=== PATIENT | female | born 1975 | race Hispanic/Latino ===

== ENCOUNTER 2016-12-27 07:11 | Inpatient (IN) | payer MEDICAID ==
[~2016-12-27] VITALS: Ht 142.2 cm; Wt 67.1 kg
[2016-12-27] MEDS ORDERED: Lactated Ringer's 1,000 ML IV PRN (07:48)
[2016-12-27] MEDS ORDERED: Carboprost 250 mCg/mL Inj IM PRN ×2 (07:50→12:15)
[2016-12-27] MEDS ORDERED: Oxytocin 10 Unit/mL Inj IM PRN ×2 (07:50→12:15)
[2016-12-27] MEDS ORDERED: Hemorrhage Kit, Post Partum XX ONE ×2 (07:50→12:15)
[2016-12-27] MEDS ORDERED: Methylergonovine 0.2 mg/mL Inj IM PRN ×2 (07:50→12:15)
[2016-12-27] MEDS ORDERED: Oxytocin 30 Units/500 mL LR 30 UNITS in IV Premix 1 EACH IV PRN ×2 (07:50→12:15)
[2016-12-27] MEDS ORDERED: Sodium Chloride LOK Flush 10 mL Syringe IVFLUSH PRN (07:50)
[2016-12-27 08:49] LABS: Mean Corpuscular Hemoglobin 26.2 pg (27.0-35.0); Mean Corpuscular Volume 81.9 fL (81-100)
[2016-12-27] MEDS ORDERED: Lactated Ringer's 1,000 ML IV SCH (12:14)
[2016-12-27] MEDS ORDERED: Witch Hazel-Glycerin Pads TOPICAL PRN (12:15)
[2016-12-27] MEDS ORDERED: Benzocaine (Dermoplast) 20% 60 Gm Spray TOPICAL PRN (12:15)
[2016-12-27] MEDS ORDERED: LANOlin HPA 7 Gm Ointment TOPICAL PRN (12:15)
--- NOTE | 2016-12-27 16:30 | HP ---
[address] [address] HISTORY AND PHYSICAL PATIENT: CHAYITO ROSE : 1975 MR#: [id number] ADMIT: 12/27/2016 JOB ID: [id number] ADMISSION DIAGNOSIS: Active labor at term. HISTORY OF PRESENT ILLNESS: The patient is a 41-year-old, 2, para 1-0-0-1, at 38 weeks and 3 days gestational age by eight week ultrasound. Had her complicated with the following. 1. Advanced maternal age and normal quad screen and normal anatomy scan. 2. Nausea and vomiting of resolved by the 2nd trimester. 3. History of Chlamydia on November 2015. Chlamydia cultures were negative in July 2016 and the repeat culture on 3rd trimester negative as well on December 10, 2016. The patient denied any leakage of fluid, bleeding. Reports movements. Reports regular contractions. PAST OBSTETRIC HISTORY: 2007, had a 40-week ending with spontaneous vaginal delivery. Baby was 7 pounds 7 ounces male , no complications in the current . PAST MEDICAL HISTORY: Nausea and vomiting of . Resolved. PAST SURGICAL HISTORY: None. ASSEMBLY ADJUSTER HISTORY: History of Chlamydia on November 2015. Followup cultures were negative as mentioned above. No prior history of abnormal Pap smears. MEDICATIONS: vitamins and promethazine stopped by 2nd trimester. ALLERGIES: No known drug allergies. SOCIAL HISTORY: Denied any alcohol consumption. Denied any drugs of abuse. Denied any cigarette smoking. FAMILY HISTORY: Insignificant for congenital anomalies or twinning. LABORATORIES: O-positive, antibody negative, rubella immune, serology nonreactive, hepatitis B surface antigen negative. HIV nonreactive. Gonorrhea/chlamydia cultures negative in July 2016 and again on December 10, 2016. Repeat HIV was negative on December 10, 2016, and repeat RPR was negative on December 10, 2016. One-hour GCT was 101, within normal limits. GBS culture was negative on December 10, 2016. PHYSICAL EXAMINATION: Patient is alert, oriented x3. Vital signs are 116/69 for blood pressure, respirations are 18, pulse is 88, temperature 36.5 degrees centigrade. Heart is regular rate and rhythm. Positive S1, S2. Lungs clear to auscultation bilaterally. Abdomen: Gravid uterus, nontender. Positive bowel sounds. Lower extremities: No calf tenderness appreciated bilaterally. Cervical exam: Anterior lip -1 station, vertex presentation. There were normal-appearing membranes palpated. Seems that the patient had spontaneous rupture of membranes with clear fluid during her intrapartum course. heart tracing is showing baseline of 140 beats per minute, positive accelerations, no decelerations, moderate variability, category 1 heart tracing. ASSESSMENT AND PLAN: Patient is 41 years old, 2, para 1-0-0-1, at 38 weeks and 3 days gestational age admitted in active labor. Progressed to anterior lip. Will expectantly manage labor. Patient opted for natural for intrapartum analgesia. GBS cultures negative. Category 1 heart tracing. Continue with external monitoring. All the above discussed in detail with the patient with the I-pad picking supervisor and the patient agreed to the above.
--- NOTE | 2016-12-27 17:38 | OP ---
[address] [address] OPERATIVE REPORT PATIENT: CHAYITO ROSE : 1975 MR#: [id number] ADMIT: 12/27/2016 JOB ID: [id number] DATE OF SURGERY: 12/27/2016 PREOPERATIVE DIAGNOSIS(ES): A 41-year-old, 2, para 1-0-0-1, at 38 weeks and 3 days gestational age by eight week ultrasound, admitted in active labor progressed to fully dilated, +3 station. POSTOPERATIVE DIAGNOSIS(ES): A 41-year-old, 2, para 1-0-0-1, at 38 weeks and 3 days gestational age by eight week ultrasound, admitted in active labor progressed to fully dilated, +3 station. PROCEDURE: Spontaneous vaginal delivery. SURGEON: Jagdeep Richter MD. ANESTHESIA: None. ESTIMATED BLOOD LOSS: 200 cc. COMPLICATIONS: None. FINDINGS: Single viable female infant with Apgars 9/9, weight 8 lb baby. Weight is still pending. DESCRIPTION OF PROCEDURE: The patient started to push efficiently. Infant had delivered in right occiput anterior position followed by shoulders and rest of the body. Delayed cord clamping allowed for 60 seconds. Infant placed over mom's chest. Placenta followed spontaneously. Cord clamped and cut and placenta followed spontaneously. Upon inspection, was noted to be intact with three-vessel cord marginally inserted. Firm uterine fundus palpated after delivery of the placenta. Inspection of the perineum revealed a first-degree vaginal laceration at 6 o'clock that was repaired in a continuous fashion with 2-0 Vicryl suture after injecting 10 cc of 1% lidocaine. The patient tolerated the procedure well. Sponge, needle, and instrument counts were correct x2. Mom and baby recovering in stable condition in labor and delivery room. Dr. Richter was present and scrubbed for the entire procedure.
[2016-12-27] MEDS: Ascorbic Acid 500 mg Tablet PO SCH (19:57)
[2016-12-28 07:05] LABS: Mean Corpuscular Hemoglobin 26.1 pg (27.0-35.0); Mean Corpuscular Volume 83.2 fL (81-100)
--- NOTE | 2016-12-28 08:30 | PCM.DC.OB ---
Obstetrical Discharge Summary Date of Service Dec 28, 2016 Date of hospital admission Dec 27, 2016 at 07:15 Date of Discharge: Dec 28, 2016 Providers Admitting Physician: Jagdeep Richter MD Primary Care Physician: Evangelina Bergeron MD Attending Physician: Jagdeep Richter MD Hospital Course: Patient is 41 years old, 2, now para 2-0-0-2 PPD#1 S/P with first degree laceration and no complications.See delivery note for details. Post anemia, asymptomatic complicated with: 1. Advanced maternal age and normal quad screen and normal anatomy scan. 2. Nausea and vomiting of resolved by the 2nd trimester. 3. History of Chlamydia on November 2015. Chlamydia cultures were negative in July 2016 and the repeat culture on 3rd trimester negative as well on December 10, 2016. The patient denied any leakage of fluid, bleeding. Reports movements. Reports regular contractions. LABORATORIES: O-positive, antibody negative, rubella immune, serology nonreactive, hepatitis B surface antigen negative. HIV nonreactive. Gonorrhea/chlamydia cultures negative in July 2016 and again on December 10, 2016. Repeat HIV was negative on December 10, 2016, and repeat RPR was negative on December 10, 2016. One-hour GCT was 101, within normal limits. GBS culture was negative on December 10, 2016. Laboratory Tests 72 Hours Test 12/27/16 08:45 12/28/16 06:45 White Blood Count 16.3th/mm3 (3.8-10.1) 16.2th/mm3 (3.8-10.1) Red Blood Count 4.04mil/mm3 (3.90-5.20) 3.10mil/mm3 (3.90-5.20) Hemoglobin 10.6g/dL (12.0-15.6) 8.1g/dL (12.0-15.6) Hematocrit 33.1% (35.0-46.0) 25.8% (35.0-46.0) Mean Corpuscular Volume 81.9fL (81-100) 83.2fL (81-100) Mean Corpuscular Hemoglobin 26.2pg (27.0-35.0) 26.1pg (27.0-35.0) Mean Corpuscular Hemoglobin Concent 32.0% (32.0-37.0) 31.4% (32.0-37.0) Red Cell Distribution Width 15.8% (12.3-15.4) 16.0% (12.3-15.4) Platelet Count 149bil/L (150-400) 125bil/L (150-400) Discharge condition: stable. Disposition: home Diet Discharge Diet: No restrictions Activity Discharge Activity-General: Pelvic Rest for 6 weeks (no sex, douching or tampons ), Be up and about, Balance rest and activity, No lifting >10 pounds for 4-6 weeks Dressing and Incisional Care Hygiene: May shower (daily ), Perineal care, Sitz bath, Dermoplast spray, Witch Karla pads Follow Up Plan Follow-up Provider (F9): Evangelina Bergeron MD Follow-up appointment: Weeks (two) Call your provider for: Fever or Chills, Shortness of breath, Heavy vaginal bleeding, Heavy bleeding, Epigastric pain, Excessive constipation, Vaginal discomfort, Red painful breasts, Other (chest pain, headache, nausea/vomiting, leg swelling, change in color or pain) ([Ascorbic Acid]) 500 MG TABLET 500 MG PO BID Prescribed by: EVANGELINA BERGERON MD Docusate Sodium (Colace) 100 Mg Capsule 100 MG PO BID PRN PRN For Constipation Prescribed by: EVANGELINA BERGERON MD Ferrous Sulfate (Feosol) 325 Mg Tablet 325 MG PO BID Prescribed by: EVANGELINA BERGERON MD Ibuprofen (Ibuprofen) 600 Mg Tablet 600 MG PO Q6H PRN PRN For Mild Pain Prescribed by: EVANGELINA BERGERON MD oxyCODONE-Acetaminophen 5-325 mg (oxyCODONE-Acetaminophen 5-325 mg) 1 Each Tablet 1 TAB PO Q4H PRN PRN For Pain Prescribed by: MD Sravanthi SINGH Omaima A MD Dec 28, 2016 08:30
--- NOTE | 2016-12-28 08:37 | PCM.DIOB ---
Obstetrical Disch Instruction Dates of Hospitalization Date of Hospital Admission Dec 27, 2016 at 07:15 Providers Admitting Physician: Jagdeep Richter MD Primary Care Physician: Raudel Fishman MD Attending Physician: Jagdeep Richter MD Discharge Diagnosis Discharge Diagnosis Normal vaginal delivery Anemia Problems: Diet Discharge Diet: No restrictions Activity Discharge Activity-General: Pelvic Rest for 6 weeks (no sex, douching or tampons ), Be up and about, Balance rest and activity, No lifting >10 pounds for 4-6 weeks Dressing and Incisional Care Hygiene: May shower (daily ), Perineal care, Sitz bath, Dermoplast spray, Witch Karla pads Follow Up Plan Follow-up Provider (F9): Raudel Fishman MD Follow-up appointment: Weeks (two) Call your provider for: Fever or Chills, Shortness of breath, Heavy vaginal bleeding, Heavy bleeding, Epigastric pain, Excessive constipation, Vaginal discomfort, Red painful breasts, Other (chest pain, headache, nausea/vomiting, leg swelling, change in color or pain) Raudel Fishman MD Dec 28, 2016 08:36
[2016-12-28] MEDS ORDERED: Ascorbic Acid PO (08:41)
[2016-12-28] MEDS ORDERED: DOCU-41 PO (08:41)
[2016-12-28] MEDS ORDERED: OXYC1TAB24 PO (08:41)
[2016-12-28] MEDS ORDERED: IBUP-1827 PO (08:41)
[2016-12-28] MEDS ORDERED: FERR-74 PO (08:41)
[2016-12-28] MEDS: Ascorbic Acid 500 mg Tablet PO SCH ×2 (09:32→17:15)
[2016-12-28 14:54] VITALS: BP 109/63; PULSE 89; RESP 16
== END 2016-12-28 17:16 | disposition home or self-care (01) | DRG 775 ==
LOC: FBCO 07:11 → FBC 07:15
PROVIDERS: ADMIT Obstetrics & Gynecology; ATTEND Obstetrics & Gynecology
PROC: 10E0XZZ Delivery of Products of Conception, External Approach (ICD-10-PCS; principal; 2016-12-27)
PROC: 0HQ9XZZ Repair Perineum Skin, External Approach (ICD-10-PCS; 2016-12-27)
DX: O70.0 First degree perineal laceration during delivery (principal); O90.81 Anemia of the puerperium; D64.9 Anemia, unspecified; Z37.0 Single live birth; Z3A.38 38 weeks gestation of pregnancy